=== PATIENT | female | born 1955 | race Two or more races ===

== ENCOUNTER 2022-08-10 16:36 | Emergency (ER) | payer OTHER ==
[~2022-08-10] VITALS: Ht 162.6 cm; Wt 74.4 kg
== END 2022-08-11 15:44 | disposition home or self-care (01) ==
LOC: ER 16:36
DX: K57.92 Diverticulitis of intestine, part unspecified, without perforation or abscess without bleeding (principal); I10 Essential (primary) hypertension; Z88.0 Allergy status to penicillin; Z20.822 Contact with and (suspected) exposure to COVID-19